=== PATIENT | male | born 1975 | race Two or more races ===

== ENCOUNTER 2023-10-24 10:14 | Outpatient (CLI) | payer MEDICAID | END 2023-10-24 23:59 | disposition home or self-care (01) | LOC: MRI 10:14 | PROVIDERS: ATTEND Orthopaedic Surgery | DX: M47.817 Spondylosis without myelopathy or radiculopathy, lumbosacral region (principal); Q67.5 Congenital deformity of spine; M51.36 Other intervertebral disc degeneration, lumbar region; M48.061 Spinal stenosis, lumbar region without neurogenic claudication; R60.9 Edema, unspecified; M40.295 Other kyphosis, thoracolumbar region | CPT/HCPCS: 72084; 72146; 72148 ==